=== PATIENT | male | born 1985 | race Caucasian/White ===

== ENCOUNTER 2024-04-28 10:36 | Emergency (ER) | payer OTHER ==
--- NOTE | 2024-04-28 10:53 | ERPHSYRPT ---
- History of Present Illness Time Seen by Provider: 04/28/24 10:40 Source: EMS Exam Limitations: clinical condition Physician History: This is a 38-year-old white male patient who presents to our emergency department unresponsive but breathing on his own. It was reported that the patient was at [facility] [place] for alcohol abuse treatment this morning and was signing out AGAINST MEDICAL ADVICE when he contacted 911 and requested fish filleter transport to [facility] in [facility]. However, the patient began seizing. Paramedics brought the patient into the emergency department here because it was the closest facility once he became unresponsive and was seizing. Patient did not have any intravenous lines in place. He was given 10 mg intramuscularly of benzodiazepine. Patient presents to the emergency department heart rate in the 60s to 70s beats per minute and it appears to be normal sinus rhythm on the heart monitor. He also has oxygen saturation level of 100% on 3 L of oxygen via nasal cannula. He is having intermittent periods of entire body shaking/tremors then no shaking or tremors. It is reported to me that this patient's last alcohol intake was 12 hours ago. Timing/Duration: today Severity of Symptoms-Max: moderate Severity of Symptoms-Current: mild Associated Symptoms: other (Unresponsive) Previous symptoms: recently seen, recently treated Allergies/Adverse Reactions: acetaminophen Allergy (Verified 04/28/24 11:17) apple Allergy (Verified 04/28/24 11:17) Travel Risk - International Travel Have you traveled outside of the country in past 3 weeks: No - Emerging Infectious Disease Are you exhibiting symptoms associated with any current EIDs: No - Past Medical History Pertinent Past Medical History: Yes - Past Surgical History Past Surgical History: No - Review of Systems Constitutional: No Symptoms Eyes: No Symptoms Ears, Nose, & Throat: No Symptoms Respiratory: No Symptoms Cardiac: No Symptoms Abdominal/Gastrointestinal: No Symptoms Genitourinary Symptoms: No Symptoms Musculoskeletal: No Symptoms Skin: No Symptoms Neurological: Tremors, Other (Patient unresponsive) Psychological: Alcohol Abuse Endocrine: No Symptoms Hematologic/Lymphatic: No Symptoms Immunological/Allergic: No Symptoms All Other Systems: Reviewed and Negative - Nursing Vital Signs Nursing Vital Signs: Initial Vital Signs Temperature 97.3 F 04/28/24 11:00 Pulse Rate 92 H 04/28/24 11:00 Respiratory Rate 20 04/28/24 11:00 Blood Pressure 195/121 04/28/24 11:00 O2 Sat by Pulse Oximetry 100 04/28/24 11:00 Pain Scale Pain Intensity 0 - Physical Exam General Appearance: other (Responsive) Eyes, Ears, Nose, Throat Exam: normal ENT inspection, TMs normal, moist mucous membranes, other (Pupils are pinpoint and equal) Neck Exam: normal inspection Respiratory Exam: normal breath sounds, lungs clear, No chest tenderness, No respiratory distress Cardiovascular Exam: regular rate/rhythm, normal heart sounds, normal peripheral pulses Gastrointestinal/Abdominal Exam: soft, normal bowel sounds, No tenderness Extremities Exam: normal inspection, other (Skin overlying distal left tibia has bandage in place) Behavior/Eye Contact/Speech: intoxicated appearance Skin Exam: normal color, warm, dry SpO2 Interpretation: normal O2 Delivery: Nasal Cannula - Course Nursing assessment & vital signs reviewed: Yes Ordered Tests: Active Orders 24 hr Category Date Time Status Catheter-[place] STAT Care 04/28/24 10:57 Active EKG-ER Only STAT Care 04/28/24 10:57 Active IV Insertion STAT Care 04/28/24 10:57 Active HEAD WITHOUT CONTRAST [CT] Stat Exams 04/28/24 10:57 Completed ABG [ARTERIAL BLOOD GASES] Stat Lab 04/28/24 11:24 Completed ACETAMINOPHEN Stat Lab 04/28/24 11:23 Completed CBC W DIFF Stat Lab 04/28/24 11:23 Completed CMP Stat Lab 04/28/24 11:23 Completed CULTURE,URINE Stat Lab 04/28/24 11:06 Received ETHYL ALCOHOL Stat Lab 04/28/24 11:23 Completed Lactic Acid Stat Lab 04/28/24 11:24 Completed SALICYLATE Stat Lab 04/28/24 11:23 Completed TROPONIN Q4H Lab 04/28/24 11:23 Completed UA W/RFX UR CULTURE Stat Lab 04/28/24 11:06 Completed Urine Triage Profile Stat Lab 04/28/24 11:06 Completed Medication Summary Generic Name Dose Route Start Last Admin Trade Name Freq PRN Reason Stop Dose Admin Sodium Chloride 1,000 mls @ 100 mls/hr 04/28/24 11:00 04/28/24 11:10 Sodium Chloride 0.9% 1000 Ml IV 05/28/24 10:59 100 mls/hr .Q10H LEMUEL Administration Discontinued Medications Generic Name Dose Route Start Last Admin Trade Name Freq PRN Reason Stop Dose Admin Naloxone HCl 0.4 mg 04/28/24 10:58 04/28/24 11:13 Naloxone Hcl 0.4 Mg/Ml Ml IV 04/28/24 10:59 Not Given STAT ONE Naloxone HCl Confirm 04/28/24 11:09 Naloxone Hcl 0.4 Mg/Ml Ml Administered 04/28/24 11:10 Dose 0.4 mg .ROUTE .STK-MED ONE Ondansetron HCl 4 mg 04/28/24 10:57 04/28/24 11:11 Ondansetron Hcl 4 Mg/2 Ml Vial IV 04/28/24 10:58 4 mg STAT ONE Administration Ondansetron HCl Confirm 04/28/24 11:09 Ondansetron Hcl 4 Mg/2 Ml Vial Administered 04/28/24 11:10 Dose 4 mg .ROUTE .STK-MED ONE Lab/Rad Data: Laboratory Result Diagrams 04/28/24 11:23 04/28/24 11:23 Laboratory Results 04/28/24 04/28/24 04/28/24 Range/Units 11:24 11:23 11:23 WBC (4.23-9.07) x10^3/uL RBC (4.63-6.08) x10^6/uL Hgb (13.7-17.5) g/dL Hct (40.1-51.0) % MCV (79.0-92.2) fL MCH (25.7-32.2) pg MCHC (32.3-36.5) g/dL RDW (11.6-14.4) % Plt Count (163-337) x10^3/uL MPV (9.4-12.4) fL Gran % (34.0-67.9) % Immature Gran % (Auto) (0.001-0.429) % Nucleat RBC Rel Count (0.00-0.2) % Eos # (Auto) (0.04-0.54) x10^3/uL Immature Gran # (Auto) (0.001-0.031) x10^3u/L Absolute Lymphs (auto) (1.32-3.57) x10^3/uL Absolute Monos (auto) (0.30-0.82) x10^3/uL Absolute Nucleated RBC (0.00-0.012) x10^3u/L Lymphocytes % (21.8-53.1) % Monocytes % (5.3-12.2) % Eosinophils % (0.8-7.0) % Basophils % (0.2-1.2) % Absolute Granulocytes (1.78-5.38) x10^3/uL Basophils # (0.01-0.08) x10^3/uL Puncture Site RIGHT RADIAL pCO2 28 L (35-45) mmHg pO2 118 H (75-100) mmHg Base Excess 5.1 H (-2.0-2.0) O2 Saturation 93.2 L (94-100) g/dF ABG pH 7.58 H* (7.35-7.45) ABG HCO3 26.3 (22-28) ABG O2 Sat (Measured) 99.7 (95-100) % Vasquez Test YES A-a Gradient 75 a/A Ratio 0.61 Hemoglobin 13.4 Carboxyhemoglobin 5.5 (0.0-6.9) % THgb Methemoglobin 1.0 L (1.4-1.5) % Temperature 37.0 C POC O2 Flow Rate 32 % Sodium (135-145) mmol/L Potassium 4.2 (3.5-5.1) mmol/L Chloride (98-107) mmol/L Carbon Dioxide (22-30) mmol/L Anion Gap (5-15) MEQ/L BUN (9-20) mg/dL Creatinine (0.66-1.25) mg/dL Estimated GFR ML/MIN Glucose (74-106) mg/dL Lactic Acid 1.9 (0.4-2.0) Calcium (8.4-10.2) mg/dL Total Bilirubin (0.2-1.3) mg/dL AST (17-59) U/L ALT (0-50) U/L Alkaline Phosphatase (38-126) U/L Troponin I < 0.012 (0.000-0.033) ng/mL Serum Total Protein (6.3-8.2) g/dL Albumin (3.5-5.0) g/dL Urine Color (Yellow) Urine Appearance (Clear) Urine pH (4.6-8.0) Ur Specific [place] (1.005-1.030) Urine Protein (Negative) Urine Glucose (UA) (Negative) mg/dL Urine Ketones (Negative) Urine Blood (Negative) Urine Nitrite (Negative) Urine Bilirubin (Negative) Urine Urobilinogen (0.2) mg/dL Ur Leukocyte Esterase (Negative) U Hyaline Cast (Auto) (0-2) /LPF Urine Microscopic RBC (0-5) /HPF Urine Microscopic WBC (0-5) /HPF Ur Epithelial Cells (None Seen) /HPF Urine Bacteria (None Seen) /HPF Urine Culture Reflexed (NO) Salicylates (2-20) mg/dL Urine Opiates Level (NEGATIVE) Ur Methadone (NEGATIVE) Acetaminophen (10-30) ug/ml Urine Barbiturates (NEGATIVE) Ur Phencyclidine (PCP) (NEGATIVE) Urine Amphetamine (NEGATIVE) U Benzodiazepine Level (NEGATIVE) Urine Cocaine (NEGATIVE) Urine Marijuana (THC) (NEGATIVE) Ethyl Alcohol (0-10) mg/dL Influenza Type A Ag NEGATIVE (NEGATIVE) Influenza Type B Ag NEGATIVE (NEGATIVE) RSV (PCR) NEGATIVE (NEGATIVE) SARS-CoV-2 (PCR) NEGATIVE (NEGATIVE) 04/28/24 04/28/24 04/28/24 Range/Units 11:23 11:23 11:06 WBC 6.6 (4.23-9.07) x10^3/uL RBC 3.78 L (4.63-6.08) x10^6/uL Hgb 12.0 L (13.7-17.5) g/dL Hct 35.7 L (40.1-51.0) % MCV 94.4 H (79.0-92.2) fL MCH 31.7 (25.7-32.2) pg MCHC 33.6 (32.3-36.5) g/dL RDW 13.2 (11.6-14.4) % Plt Count 162 L (163-337) x10^3/uL MPV 9.4 (9.4-12.4) fL Gran % 66.0 (34.0-67.9) % Immature Gran % (Auto) 0.2 (0.001-0.429) % Nucleat RBC Rel Count 0.0 (0.00-0.2) % Eos # (Auto) 0.38 (0.04-0.54) x10^3/uL Immature Gran # (Auto) 0.01 (0.001-0.031) x10^3u/L Absolute Lymphs (auto) 1.45 (1.32-3.57) x10^3/uL Absolute Monos (auto) 0.37 (0.30-0.82) x10^3/uL Absolute Nucleated RBC 0.00 (0.00-0.012) x10^3u/L Lymphocytes % 21.9 (21.8-53.1) % Monocytes % 5.6 (5.3-12.2) % Eosinophils % 5.7 (0.8-7.0) % Basophils % 0.6 (0.2-1.2) % Absolute Granulocytes 4.37 (1.78-5.38) x10^3/uL Basophils # 0.04 (0.01-0.08) x10^3/uL Puncture Site pCO2 (35-45) mmHg pO2 (75-100) mmHg Base Excess (-2.0-2.0) O2 Saturation (94-100) g/dF ABG pH (7.35-7.45) ABG HCO3 (22-28) ABG O2 Sat (Measured) (95-100) % Vasquez Test A-a Gradient a/A Ratio Hemoglobin Carboxyhemoglobin (0.0-6.9) % THgb Methemoglobin (1.4-1.5) % Temperature C POC O2 Flow Rate % Sodium 137 (135-145) mmol/L Potassium 4.0 (3.5-5.1) mmol/L Chloride 101 (98-107) mmol/L Carbon Dioxide 31 H (22-30) mmol/L Anion Gap 9.0 (5-15) MEQ/L BUN 8 L (9-20) mg/dL Creatinine 0.76 (0.66-1.25) mg/dL Estimated GFR 117.3 ML/MIN Glucose 135 H (74-106) mg/dL Lactic Acid (0.4-2.0) Calcium 9.0 (8.4-10.2) mg/dL Total Bilirubin 0.10 L (0.2-1.3) mg/dL AST 25 (17-59) U/L ALT 22 (0-50) U/L Alkaline Phosphatase 85 (38-126) U/L Troponin I (0.000-0.033) ng/mL Serum Total Protein 5.8 L (6.3-8.2) g/dL Albumin 3.5 (3.5-5.0) g/dL Urine Color (Yellow) Urine Appearance (Clear) Urine pH (4.6-8.0) Ur Specific [place] (1.005-1.030) Urine Protein (Negative) Urine Glucose (UA) (Negative) mg/dL Urine Ketones (Negative) Urine Blood (Negative) Urine Nitrite (Negative) Urine Bilirubin (Negative) Urine Urobilinogen (0.2) mg/dL Ur Leukocyte Esterase (Negative) U Hyaline Cast (Auto) (0-2) /LPF Urine Microscopic RBC (0-5) /HPF Urine Microscopic WBC (0-5) /HPF Ur Epithelial Cells (None Seen) /HPF Urine Bacteria (None Seen) /HPF Urine Culture Reflexed (NO) Salicylates < 1.0 L (2-20) mg/dL Urine Opiates Level NEGATIVE (NEGATIVE) Ur Methadone NEGATIVE (NEGATIVE) Acetaminophen < 10 L (10-30) ug/ml Urine Barbiturates POSITIVE A (NEGATIVE) Ur Phencyclidine (PCP) NEGATIVE (NEGATIVE) Urine Amphetamine NEGATIVE (NEGATIVE) U Benzodiazepine Level POSITIVE A (NEGATIVE) Urine Cocaine NEGATIVE (NEGATIVE) Urine Marijuana (THC) NEGATIVE (NEGATIVE) Ethyl Alcohol < 10 (0-10) mg/dL Influenza Type A Ag (NEGATIVE) Influenza Type B Ag (NEGATIVE) RSV (PCR) (NEGATIVE) SARS-CoV-2 (PCR) (NEGATIVE) 04/28/24 Range/Units 11:06 WBC (4.23-9.07) x10^3/uL RBC (4.63-6.08) x10^6/uL Hgb (13.7-17.5) g/dL Hct (40.1-51.0) % MCV (79.0-92.2) fL MCH (25.7-32.2) pg MCHC (32.3-36.5) g/dL RDW (11.6-14.4) % Plt Count (163-337) x10^3/uL MPV (9.4-12.4) fL Gran % (34.0-67.9) % Immature Gran % (Auto) (0.001-0.429) % Nucleat RBC Rel Count (0.00-0.2) % Eos # (Auto) (0.04-0.54) x10^3/uL Immature Gran # (Auto) (0.001-0.031) x10^3u/L Absolute Lymphs (auto) (1.32-3.57) x10^3/uL Absolute Monos (auto) (0.30-0.82) x10^3/uL Absolute Nucleated RBC (0.00-0.012) x10^3u/L Lymphocytes % (21.8-53.1) % Monocytes % (5.3-12.2) % Eosinophils % (0.8-7.0) % Basophils % (0.2-1.2) % Absolute Granulocytes (1.78-5.38) x10^3/uL Basophils # (0.01-0.08) x10^3/uL Puncture Site pCO2 (35-45) mmHg pO2 (75-100) mmHg Base Excess (-2.0-2.0) O2 Saturation (94-100) g/dF ABG pH (7.35-7.45) ABG HCO3 (22-28) ABG O2 Sat (Measured) (95-100) % Vasquez Test A-a Gradient a/A Ratio Hemoglobin Carboxyhemoglobin (0.0-6.9) % THgb Methemoglobin (1.4-1.5) % Temperature C POC O2 Flow Rate % Sodium (135-145) mmol/L Potassium (3.5-5.1) mmol/L Chloride (98-107) mmol/L Carbon Dioxide (22-30) mmol/L Anion Gap (5-15) MEQ/L BUN (9-20) mg/dL Creatinine (0.66-1.25) mg/dL Estimated GFR ML/MIN Glucose (74-106) mg/dL Lactic Acid (0.4-2.0) Calcium (8.4-10.2) mg/dL Total Bilirubin (0.2-1.3) mg/dL AST (17-59) U/L ALT (0-50) U/L Alkaline Phosphatase (38-126) U/L Troponin I (0.000-0.033) ng/mL Serum Total Protein (6.3-8.2) g/dL Albumin (3.5-5.0) g/dL Urine Color Yellow (Yellow) Urine Appearance Clear (Clear) Urine pH 7.0 (4.6-8.0) Ur Specific [place] <=1.005 (1.005-1.030) Urine Protein Negative (Negative) Urine Glucose (UA) Negative (Negative) mg/dL Urine Ketones Negative (Negative) Urine Blood Negative (Negative) Urine Nitrite Negative (Negative) Urine Bilirubin Negative (Negative) Urine Urobilinogen 0.2 (0.2) mg/dL Ur Leukocyte Esterase Trace A (Negative) U Hyaline Cast (Auto) NONE SEEN (0-2) /LPF Urine Microscopic RBC 0-2 (0-5) /HPF Urine Microscopic WBC 0-2 (0-5) /HPF Ur Epithelial Cells None Seen (None Seen) /HPF Urine Bacteria None Seen (None Seen) /HPF Urine Culture Reflexed ORDERED SEPARATELY (NO) Salicylates (2-20) mg/dL Urine Opiates Level (NEGATIVE) Ur Methadone (NEGATIVE) Acetaminophen (10-30) ug/ml Urine Barbiturates (NEGATIVE) Ur Phencyclidine (PCP) (NEGATIVE) Urine Amphetamine (NEGATIVE) U Benzodiazepine Level (NEGATIVE) Urine Cocaine (NEGATIVE) Urine Marijuana (THC) (NEGATIVE) Ethyl Alcohol (0-10) mg/dL Influenza Type A Ag (NEGATIVE) Influenza Type B Ag (NEGATIVE) RSV (PCR) (NEGATIVE) SARS-CoV-2 (PCR) (NEGATIVE) - Progress Progress Note: 04/28/24 10:54 My medical decision making and the assignment of high complexity to this patient's medical issue today is based on review of the patient's past medical history, review of the patient's medication list, the review of the patient drug allergy list, history present illness and physical findings on examination. The workup in this patient includes placement of intravenous line, infusion of normal saline solution, we will infuse Narcan, CT scan of the head without contrast, CBC, CMP, twelve-lead EKG, urine drug triage, urinalysis, salicylate level, acetaminophen level. We will also place a Leach catheter. Differential diagnosis includes but is not limited to acute intracranial abnormality, alcohol withdrawal, electrolyte abnormalities, dehydration, urinary tract infection, illicit drug use 04/28/24 10:56 04/28/24 11:21 Patient was reexamined. He is now becoming more awake alert and oriented. He states that he went from emergency department to the [facility]. He states that he is on two 800 mg Suboxone a day. He states he also takes 10 mg of Valium 3-4 times a day. He feels that he is in alcohol withdrawals. I am tending to agree with him. His whole body is aching at this time. We will hold on infusion of Narcan. 04/28/24 12:42 I interpreted the patient's laboratory data reports. Based on the laboratory data results, there are no acute, emergent medical issues. CT scan of the head without contrast was interpreted by the radiologist and I reviewed the impression. The impression shows no acute CT scan of the brain findings. There is a healed fracture of the posterior wall of the left maxillary sinus. There is a fracture of the left inferior orbital wall (blowout) of indeterminate age. There is no evidence of any herniation into or through this fracture 04/28/24 13:04 This patient does not have any acute or emergent medical issue. He left in inpatient/in-house rehab facility AGAINST MEDICAL ADVICE. His workup today does not show anything acute or emergent. Patient is not suicidal. Patient is not homicidal. Patient will be discharged to home. 04/28/24 13:40 Patient has prescriptions available to him. I will not be prescribing any outpatient medications. Counseled pt/family regarding: lab results, diagnosis, rad results Medical Desision Making - Diagnostic Testing Diagnostic test were ordered, analyzed, and reviewed by me: Yes Radiological Interpretation: Reviewed by me, Teleradiologist Report - Risk of complications Low Risk: Low risk of morbidity from additional dx testing or treatment - Departure Departure Disposition: Home Clinical Impression: Occasional tremors Condition: Stable Critical Care Time: No Referrals: DOCTOR,NO FAMILY [Primary Care Provider] - Follow up/PCP as directed Additional Instructions: client application support specialist your prescriptions that are available to you. Call your prescribing provider on 04/29/2024 to make arrangements for follow-up appointment and for further outpatient management.
[2024-04-28 11:06] VITALS: TEMP 97.3
[2024-04-28] MEDS ORDERED: Narcan 0.4 MG/ML ONE (11:09)
[2024-04-28] MEDS ORDERED: Zofran 4 MG/2 ML VIAL ONE (11:09)
[2024-04-28] MEDS ORDERED: Sodium Chloride 0.9% 1000 ML 1,000 ML ONE (11:09)
[2024-04-28] MEDS: Sodium Chloride 0.9% 1000 ML 1,000 ML IV SCH (11:10)
[2024-04-28] MEDS: Zofran 4 MG/2 ML VIAL IV ONE (11:11)
[2024-04-28] MEDS: Narcan 0.4 MG/ML IV ONE (11:13)
[2024-04-28 11:25] LABS: A-aADO2 75; ABG HEMOGLOBIN 13.4; ABG POTASSIUM 4.2 (3.5-5.1); ABG SITE RIGHT RADIAL; ALLEN TEST OK? YES; ARTERIAL BLD GAS O2 SATURATION 99.7 % (95-100); ARTERIAL BLOOD GAS BASE EXCESS 5.1 (-2.0-2.0); ARTERIAL BLOOD GAS FIO2 32 %; ARTERIAL BLOOD GAS PCO2 28 mmHg (35-45); ARTERIAL BLOOD GAS PO2 118 mmHg (75-100); ARTERIAL BLOOD GAS pH 7.58 (7.35-7.45); CARBOXYHEMOGLOBIN 5.5 % THgb (0.0-6.9); HCO3- 26.3 (22-28); HGB O2 SAT 93.2 g/dF (94-100); Lactic Acid 1.9 (0.4-2.0); paO2 pAO1 0.61
[2024-04-28 11:33] LABS: Absolute Neutrophil Ct (ANC) 4.37 x10^3/uL (1.78-5.38); BASOPHIL % 0.6 % (0.2-1.2); Basophil (Absolute #) 0.04 x10^3/uL (0.01-0.08); Eosinophil % 5.7 % (0.8-7.0); Eosinophil (Absolute #) 0.38 x10^3/uL (0.04-0.54); Hematocrit 35.7 % (40.1-51.0); IMMATURE GRAN # 0.01 x10^3u/L (0.001-0.031); IMMATURE GRAN % 0.2 % (0.001-0.429); Lymphocyte (Absolute #) 1.45 x10^3/uL (1.32-3.57); Lymphocytes % 21.9 % (21.8-53.1); Mean Cell Volume 94.4 fL (79.0-92.2); Mean Corpuscular Hemoglobin 31.7 pg (25.7-32.2); Mean Corpuscular Hgb Concent. 33.6 g/dL (32.3-36.5); Mean Platelet Volume 9.4 fL (9.4-12.4); Monocyte (Absolute #) 0.37 x10^3/uL (0.30-0.82); Monocytes % 5.6 % (5.3-12.2); Platelet Count 162 x10^3/uL (163-337); Red Blood Count 3.78 x10^6/uL (4.63-6.08); Red Cell Distribution Width 13.2 % (11.6-14.4); White Blood Count 6.6 x10^3/uL (4.23-9.07)
[2024-04-28 11:47] LABS: Appearance Clear (Clear); Bacteria None Seen /HPF (None Seen); Bilirubin Negative (Negative); Blood Negative (Negative); Epithelial Cells None Seen /HPF (None Seen); Glucose, Urine Negative (Negative); Hyaline Casts NONE SEEN /LPF (0-2); Ketones Negative (Negative); Leukocyte Esterase Trace (Negative); Nitrite Negative (Negative); Protein,Urine Dip Negative (Negative); RBC 0-2 /HPF (0-5); Specific Gravity <=1.005 (1.005-1.030); Urobilinogen 0.2 mg/dL (0.2); WBC 0-2 /HPF (0-5)
[2024-04-28 11:48] LABS: ACETAMINOPHEN < 10 ug/ml (10-30); ALBUMIN 3.5 g/dL (3.5-5.0); ALKALINE PHOSPHATASE 85 U/L (38-126); BLOOD UREA NITROGEN 8 mg/dL (9-20); CHLORIDE 101 mmol/L (98-107); Carbon Dioxide 31 mmol/L (22-30); Creatinine 1 0.76 mg/dL (0.66-1.25); EST GLOMERULAR FILTRATION RATE 117.3 ML/MIN; ETHYL ALCOHOL < 10 mg/dL (0-10); Glucose 135 mg/dL (74-106); SALICYLATE < 1.0 mg/dL (2-20); SGOT/AST 25 U/L (17-59); SGPT/ALT 22 U/L (0-50); SODIUM 137 mmol/L (135-145); Total Protein 5.8 g/dL (6.3-8.2)
[2024-04-28 11:55] LABS: ADD URINE CULTURE? ORDERED SEPARATELY (NO)
[2024-04-28 11:57] LABS: Amphetamine,Urine NEGATIVE (NEGATIVE); Barbiturate,Urine POSITIVE (NEGATIVE); Benzodiazepine,Urine POSITIVE (NEGATIVE); Cocaine,Urine NEGATIVE (NEGATIVE); Methadone,Urine NEGATIVE (NEGATIVE); Opiate,Urine NEGATIVE (NEGATIVE); PCP,Urine NEGATIVE (NEGATIVE); THC,Urine NEGATIVE (NEGATIVE)
[2024-04-28 12:13] LABS: INFLUENZA A NEGATIVE (NEGATIVE); INFLUENZA B NEGATIVE (NEGATIVE); RESPIRATORY SYNCTIAL VIRUS NEGATIVE (NEGATIVE); SARS-CoV-2 Xpert Express NEGATIVE (NEGATIVE)
--- NOTE | 2024-04-28 12:38 | XRAY ---
CLINICAL HISTORY: Unresponsive COMPARISON: None. TECHNIQUE: An axial non-contrast CT scan of the brain was performed from the skull base to the high parietal region. One of the following dose reduction techniques was utilized for this exam: Automated exposure control, adjustment of the mA and/or kV according to patient size, use of iterative reconstruction. CTDI: 53.92 mGy, DLP: 1058.31 mGy-cm. FINDINGS: Brain Parenchyma: Normal attenuation of the cerebral hemispheres, cerebellum, and brainstem. No evidence of acute infarct, hemorrhage, or mass effect. No abnormal areas of hypo- or hyperattenuation. Ventricular System: Ventricles are normal in size and configuration. No evidence of hydrocephalus or ventricular enlargement. Subarachnoid Spaces: Normal sulci and cisterns. No evidence of subarachnoid hemorrhage or extra-axial fluid collections. Cerebellum and Brainstem: Normal size and signal. No masses, lesions, or areas of abnormal signal. Orbits: Normal appearance of the globes, optic nerves, and extraocular muscles. No evidence of orbital masses. Sinuses: Minimal left maxillary polypoidal mucosal thickening, otherwise clear rest of paranasal sinuses. Internal fixation by metallic screws and wires is seen at the anterior cortical margin of the left zygoma and the anterior wall of the left maxillary sinus. Healed fracture of the posterior wall of the left maxillary sinus. There is a fracture of the left inferior orbital wall without herniation of the orbital content consistent with a blow-out fracture. A nasopharyngeal tube is noted. Clear mastoid air cells. No evidence of mastoiditis. IMPRESSION: 1. No acute CT brain findings. 2. Healed fracture of the posterior wall of the left maxillary sinus. 3. Fracture of the left inferior orbital wall (blowout fracture) of indeterminate age. Electronically Signed by: Fred Mesa MD. (04/28/2024 12:34:43 EDT)
[2024-04-28 13:36] VITALS: BP 109/66; PULSE 75; RESP 13; O2SAT 99
== END 2024-04-28 14:26 | disposition home or self-care (01) ==
LOC: ED 10:36
DX: G25.2 Other specified forms of tremor (principal); R40.4 Transient alteration of awareness; Z79.899 Other long term (current) drug therapy
CPT/HCPCS: 0241U; 36000; 36415; 36600; 51702; 70450; 80053; 80143; 80179; 80307; 81001; 82077; 82375; 82803; 83605; 84484; 85025; 87086; 93005; 96360; 96374; 99284; 96375; J2310; J2405